=== PATIENT | male | born 1960 | race Caucasian/White ===

== ENCOUNTER 2020-06-30 08:41 | Outpatient (CLI) | payer OTHER, SELFPAY ==
--- NOTE | 2020-06-30 09:14 | CT_ITS ---
WS: [id number] CT HEAD NONCONTRAST HISTORY: CHRONIC HEADACHES, ABNORMAL LOSS OF WEIGHT TECHNIQUE: Contiguous axial imaging performed through the brain in 2.5 mm imaging. Bone and soft tiss ue windows. All CT scans at [facility] use at least one of these dose optimization techniq ues: automated exposure control; mA and/or kV adjustment per patient size (includes targeted exams wh ere dose is matched to clinical indication); or iterative reconstruction. DLP: 1058.18 mGycm COMPARISON: None available. No acute intracranial hemorrhage, midline shift or mass effect. Mild atrophy and chronic ischemic disease. Prior lacunar infarct LEFT frontal lobe. Tiny lacunar infa rcts in the anterior capsules bilaterally. Ventricles: Normal size with no hydrocephalus. Paranasal sinuses: Mild mucoperiosteal thickening in the LEFT maxillary sinus. Mastoid air cells: Complete opacification of the RIGHT and near complete opacification of the LEFT ma stoid air cells. Small amount of increased soft tissue surrounding the RIGHT inner ear ossicles. Calvarium and scalp: Skull is intact with no soft tissue edema or swelling. Indeterminate lytic area RIGHT frontal bone at 9 mm. Marked increased soft tissue thickening bilaterally within the nasopharynx and possible lytic lesion involving the anterior foramen magnum. CT/CT head wo con* [id number] IMPRESSION: 1. No acute intracranial hemorrhage or edema. 2. Marked soft tissue thickening extending bilaterally across the nasopharynx with a possible lytic lesion in the anterior foramen magnum. 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 3. Recommendation: Follow-up CT neck with IV contrast. Follow-up with ENT is a lso recommended. 4. Significant opacifications in the mastoid air cells with soft tissue surrou nding the RIGHT inner ear ossicles.
== END 2020-06-30 08:42 | disposition home or self-care (01) ==
LOC: RADWPI 08:47
PROVIDERS: PCP Nurse Practitioner; Visit Provider Nurse Practitioner
DX: H91.91 Unspecified hearing loss, right ear (principal); R51.9 Headache, unspecified; R63.4 Abnormal weight loss
CPT/HCPCS: 70450

== ENCOUNTER 2020-08-04 13:14 | Outpatient (CLI) | payer OTHER, SELFPAY ==
--- NOTE | 2020-08-04 13:21 | MR_ITS ---
WS: [id number] MRI BRAIN WITH AND WITHOUT CONTRAST HISTORY: UNSPECIFIED HEARING LOSS COMPARISON: Noncontrast head CT 06/30/2020. TECHNIQUE: Multiplanar imaging performed through the brain with Prohance 15 ml's IV. No acute infarcts are seen. Whyte-white matter differentiation is well preserved. There are a few smal l scattered T2 and FLAIR signal hyperintensities from chronic white matter disease. Small amount of c hronic ischemic change noted within the samantha bilaterally. No susceptibility artifacts or prior lacunar infarcts. Ventricles and extra-axial spaces are normal. 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 This mass extends over a length of 5.4 cm and anterior posterior by 2.3 cm. Mass begins in the posterior nasal cavity and extends posterior to abut the dorsum sellae and extends inferiorly with partial occlusion of the posterior oropharynx and hypopharynx. Tumor encases the anterior ring of C1 and abuts the C2 vertebra l body. Mass extends transversely over a width of 6.8 cm. There are numerous tiny cystic and solid co mponents within the mass. There may even be a necrotic area or abscess developing on the LEFT posteri or to the pterygoid muscles. Soft tissue tumor encasement of a significant portion of the RIGHT carot id artery and to a lesser extent the LEFT carotid artery. Involvement of the carotid arteries predomi nantly to the petrous bone. Mass extends to abut the LEFT pterygoid muscle. The entire mass is not in cluded as it extends below the skull base. Mass extends into the parapharyngeal spaces bilaterally an d extends to abut the deep lobes of the parotid glands bilaterally. Paranasal sinuses: No significant air-fluid levels within the sinus cavities. Mastoid air cells: There is extensive T2 and fluid like signal filling the mastoid air cells bilatera lly. Calvarium and scalp: Enhancing calvarial lesion involving the RIGHT frontal lobe measures 15 mm. Ge tional 3 mm nodule towards the LEFT parietal vertex. MR/MR head wo/w con [id number] IMPRESSION: 1. No acute infarct or intracranial mass. 2. 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 Incomp letely visualized on this examination but there is encasement of the petrous ca rotid arteries. There is involvement of the carotid spaces and the parapharynge al spaces bilaterally. Mass also extends but may not invade into the parotid sp aces. 3. There is encasement and extension of soft tissue tumor to abut the anterior C1 and C2 vertebral bodies. 4. 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 5. Severe bilateral mastoid air cell effusions.
== END 2020-08-04 13:15 | disposition home or self-care (01) ==
PROVIDERS: PCP Nurse Practitioner Family; Visit Provider Specialist
DX: H91.90 Unspecified hearing loss, unspecified ear (principal); G93.6 Cerebral edema; J34.89 Other specified disorders of nose and nasal sinuses
CPT/HCPCS: 70553; A9579

== ENCOUNTER 2020-08-10 13:52 | Outpatient (CLI) | payer OTHER, SELFPAY ==
[2020-08-10 14:15] LABS: Hematocrit 39.8 % (42.0-52.0); Hemoglobin 13.2 g/dL (11.7-16.6); Mean Corpuscular HGB Conc 33.2 g/dL (30.0-36.0); Mean Corpuscular Hemoglobin 29.9 pg (28.0-34.0); Mean Corpuscular Volume 90.2 fL (80-94); Mean Platelet Volume 9.4 fL (7.4-10.4); Platelet Count 348 10^3/cmm (130-400); Red Blood Count 4.41 10^6/uL (4.1-5.3); Red Cell Distribution Width 13.6 % (12.1-15.1); White Blood Count 7.7 10^3/uL (4.0-10.0)
[2020-08-10 14:46] LABS: Anion Gap 11.6 (5-19); Blood Urea Nitrogen 12 mg/dL (8-23); Calcium 9.3 mg/dL (8.5-10.5); Carbon Dioxide 31 mmol/L (22-29); Chloride 96 mmol/L (98-107); Glomerular Filtration Rate 76.2 mL/min (90-130); Glucose 79 mg/dL (65-115); Osmolality Calculated 279 mOsm/kg (285-295); Potassium 3.6 mmol/L (3.5-5.1); Sodium 135 mmol/L (136-145)
[2020-08-10 15:28] LABS: Total Cells Counted 100 (0-100)
[2020-08-10 15:29] LABS: Absolute Neutrophil 6.2 10^3/cmm (1.4-6.5); Absolute Segmented Neutrophil 6.2 10/cmm (1.6-7.1); Anisocytosis 1+; Eosinophils 1 %; Lymphocytes 10 %; Platelet Estimate Normal (Normal); Segmented Neutrophils 81 %
--- NOTE | 2020-08-10 16:33 | ECG_ITS ---
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 Measurements Intervals [place] Rate: 84 P: 78 CO: 148 QRS: 65 QRSD: 92 T: 80 QT: 358 QTc: 426 Interpretive Statements SINUS RHYTHM POSSIBLE LEFT ATRIAL ENLARGEMENT [-0.1mV P WAVE IN V1/V2] POSSIBLE LEFT VENTRICULAR HYPERTROPHY [VOLTAGE CRITERIA PLUS LAE OR QRS WIDENING] MODERATE T-WAVE ABNORMALITY, CONSIDER LATERAL ISCHEMIA [-0.1+ mV T WAVE IN I/aVL/V5/V6] No previous ECG available for comparison Electronically Signed On 08-10-2020 21:38:07 TAG WRITER by Martinez Ramirez M.D. [id number]
== END 2020-08-10 13:53 | disposition home or self-care (01) ==
LOC: LAB 13:55
PROVIDERS: PCP Nurse Practitioner Family; Visit Provider Specialist
DX: C11.9 Malignant neoplasm of nasopharynx, unspecified (principal)
CPT/HCPCS: 36415; 80048; 85007; 85027; 93005

== ENCOUNTER 2020-08-12 13:34 | Outpatient (CLI) | payer OTHER, SELFPAY ==
[2020-08-13 14:03] LABS: Miscellaneous Test See Scanned Lab Rpt
== END 2020-08-12 13:35 | disposition home or self-care (01) ==
PROVIDERS: PCP Nurse Practitioner Family; Visit Provider Specialist
DX: J34.9 Unspecified disorder of nose and nasal sinuses (principal)
CPT/HCPCS: 88184; 88185; 88305